=== PATIENT | female | born 1950 | race Two or more races ===

== ENCOUNTER 2025-04-22 13:56 | Emergency (ER) | payer OTHER ==
[~2025-04-22] VITALS: Ht 160 cm; Wt 81.2 kg
[2025-04-22] MEDS ORDERED: ZOCOR40 MG PO (14:29)
[2025-04-22] MEDS ORDERED: METFORMIN HCL500 M3 (14:29)
[2025-04-22] MEDS ORDERED: ZESTRIL20 MG (14:30)
[2025-04-22] MEDS ORDERED: SYNTHROID125 MCG PO (14:30)
[2025-04-22 17:44] LABS: BASO % 0.3 % (0.1-1.2); EOS # 0.02 (0.04-0.54); EOS % 0.2 % (0.7-7.0); LYMPH # 1.64 (1.18-3.74); LYMPH % 17.1 % (19.3-53.1); MEAN PLATELET VOLUME 10.40 fl (9.4-12.4); MONO # 0.90 (0.24-0.82); MONO % 9.4 % (4.7-12.5); NEUT # 6.92 (1.56-6.13); NEUT % 72.2 % (34.0-71.1); RED CELL DISTRIBUTION WIDTH 12.9 % (11.6-14.4)
[2025-04-22 18:02] LABS: COVID-19 AG NEGATIVE (NEGATIVE)
[2025-04-22 18:44] LABS: ALT/SGPT 34.0 U/L (12-78); AST/SGOT 22.0 U/L (15-37); BILIRUBIN TOTAL 0.76 mg/dL (0.3-1.2); BUN CREA RATIO 12.0 (7.0-25.0); CKMB 2.3 NG/ML (0.5-3.6); CREATININE SERUM 1.07 mg/dL (0.55-1.02); GFR 50.13; GLOBULINA 3.4 G/DL (2.4-3.5); OSMOLALITY SERUM 275.0 MOSM/KG (275-295)
[2025-04-22 18:47] LABS: GLUCOSE FASTING 217.0 mg/dL (65-100)
[2025-04-22] MEDS ORDERED: PEPCID AC20 MG PO (19:27)
== END 2025-04-22 21:53 | disposition home or self-care (01) ==
LOC: ER 13:56
PROVIDERS: Student in an Organized Health Care Education/Training Program
DX: K29.70 Gastritis, unspecified, without bleeding (principal); R11.10 Vomiting, unspecified; Z20.822 Contact with and (suspected) exposure to COVID-19; I10 Essential (primary) hypertension; E11.9 Type 2 diabetes mellitus without complications; Z79.84 Long term (current) use of oral hypoglycemic drugs; Z88.8 Allergy status to other drugs, medicaments and biological substances; Z91.018 Allergy to other foods